=== PATIENT | male | born 1965 | race Caucasian/White ===

== ENCOUNTER → 2016-04-22 | Outpatient (CLI) | payer OTHER ==
[~2016-04-22] MED LIST: /ACYC20CA OR; /ADVA50050 IN; /ESOM40CA PO; ACYC1CAP8 PO; ADV250INH INH; ALBU17IN INH; BREO1INH3 IN; BUSP15TA47 PO; DEPA250T2 PO; DEPA500T OR; DEPA500T2 OR; DEPA500T2 PO; EFFE150C OR; EFFEXOR XR PO; FLEXERIL PO; FLUO20CA8 PO; FLUO20CA9 PO; HYDR25TA6 OR; HYDROCORTISONE0.5 % TOP; KETO2CR TOP; LAMI25TA OR; LAMI25TA PO; LAMICTAL PO; LISI-538 PO; LISI10TA4 OR; LISI20TA5 OR; LISI5TAB PO; LISIPOW; METRCRM EXT; PROZ10CA7 PO; REME15TA PO; SUCR1TA PO; TINA1CRE TOP; TRAZ50TA OR; TRAZ50TA4 PO; VALA500T PO; VENL100T OR; ZOVI400T OR; meloxicam; meloxicam PO
[2016-04-22 12:26] LABS: BASO # 0.1 K/mm3 (0.0-0.2); BASO % 2.2 % (0.0-1.0); EOS # 0.2 K/mm3 (0.0-0.50); EOS % 2.9 % (0.0-3.0); LARGE UNSTAINED CELL # 0.2 K/mm3 (0.0-0.4); LARGE UNSTAINED CELL % 2.5 % (0.0-4.0); LYMPH # 2.2 K/mm3 (1.5-4.5); LYMPH % 33.7 % (24.0-44.0); MEAN CORPUSCULAR HEMOGLOBIN 32.8 pg (27.0-33.0); MEAN CORPUSCULAR HGB CONC 34.3 g/dl (32.0-36.5); MEAN CORPUSCULAR VOLUME 95.6 fl (80.0-96.0); MONO # 0.3 K/mm3 (0.0-0.8); MONO % 5.7 % (0.0-5.0); NEUTROPHILS # 3.2 K/mm3 (1.8-7.7); PLATELET COUNT, AUTOMATED 180 k/mm3 (150-450); RED CELL DISTRIBUTION WIDTH 13.6 % (11.5-14.5)
[2016-04-22 12:54] LABS: ALBUMIN 4.2 GM/DL (3.2-5.2); ALKALINE PHOSPHATASE 82 U/L (45-117); ALT/SGPT 24 U/L (12-78); ANION GAP 7 MEQ/L (8-16); AST/SGOT 13 U/L (15-37); BILIRUBIN,TOTAL 0.5 MG/DL (0.2-1.0); BLOOD UREA NITROGEN 12 MG/DL (7-18); CALCIUM LEVEL 9.4 MG/DL (8.5-10.1); CARBON DIOXIDE LEVEL 29 MEQ/L (21-32); CHLORIDE LEVEL 107 MEQ/L (98-107); CREATININE FOR GFR 1.07 MG/DL (0.70-1.30); GLOMERULAR FILTRATION RATE > 60.0 (>60); GLUCOSE, FASTING 95 MG/DL (70-105); POTASSIUM SERUM 4.5 MEQ/L (3.5-5.1); SODIUM LEVEL 143 MEQ/L (136-145)
[2016-04-23 15:25] LABS: CHOLESTEROL LEVEL 201 MG/DL (<200); FREE T4 1.02 NG/DL (0.76-1.46); TRIGLYCERIDES LEVEL 113 MG/DL (<150)
== END ==
LOC: M LAB 11:21
PROVIDERS: ATTEND Nurse Practitioner Psychiatric/Mental Health
DX: R37 Sexual dysfunction, unspecified (principal)

== ENCOUNTER → 2016-12-18 | Outpatient (REF) | payer OTHER ==
[~2016-12-18] MED LIST changes: -ACYC1CAP8 PO; +ACYC200C8 PO; +FLUO20CA19 PO; -FLUO20CA9 PO; +TRAZ50TA11 PO; -TRAZ50TA4 PO; -VALA500T PO; +VALA500T2 PO
== END ==
LOC: M LAB REF 12:50
PROVIDERS: ATTEND Family Medicine Addiction Medicine
DX: N52.9 Male erectile dysfunction, unspecified (principal)

== ENCOUNTER → 2017-01-15 | Outpatient (CLI) | payer OTHER ==
--- NOTE | 2017-01-17 14:22 | EEG ---
DATE OF PROCEDURE: 01/15/2017 REFERRING PHYSICIAN: Eliud Brown DIAGNOSIS: Seizure. EEG NUMBER: [id number] HISTORY: The patient is a 51-year-old man with history of anxiety, depression, suicidal ideation who is currently taking Wellbutrin, lithium, trazodone, gabapentin, lisinopril, Valtrex. This EEG was done to rule out epileptic potential. TECHNICAL DESCRIPTION: This digital EEG was recorded by 21 scalp, ear and two EKG electrodes and was reviewed in bipolar and referential montages following reformatting in 10-20 international electrode placement system. INTERPRETATION: The patient was noted to be in awake and drowsy states during this EEG. Resting awake background rhythm consisted of well-formed posterior dominant rhythm with anterior/posterior gradient comprising of 9 Hertz alpha activity measuring 15 - 40 microvolts in amplitude which was symmetric and reactive to eye opening. Attenuation of posterior dominant was seen during transition into drowsiness. No sleep was achieved. Hyperventilation remained unremarkable. Photic stimulation remained unremarkable. EKG revealed normal sinus rhythm. No focal, lateralizing or epileptiform abnormalities were seen. No clinical or electrographic seizures were recorded. CONCLUSION: This EEG in awake and drowsy states is within normal limits.
== END ==
LOC: M SLEEP 08:06
PROVIDERS: ATTEND Nurse Practitioner Psychiatric/Mental Health
DX: G40.89 Other seizures (principal); F33.2 Major depressive disorder, recurrent severe without psychotic features

== ENCOUNTER → 2017-05-15 | Outpatient (REF) | payer OTHER ==
[2017-05-15 14:03] LABS: BASO # 0.1 10^3/uL (0.0-0.2); BASO % 0.8 % (0.0-1.0); EOS # 0.4 10^3/uL (0.0-0.50); EOS % 5.8 % (0.0-3.0); HEMATOCRIT 42.8 % (42.0-52.0); HEMOGLOBIN 14.8 g/dl (14.0-18.0); IMMATURE GRANULOCYTE % 0.5 % (0-3.0); LYMPH % 33.1 % (24.0-44.0); MEAN CORPUSCULAR HGB CONC 34.6 g/dl (32.0-36.5); MEAN CORPUSCULAR VOLUME 98.4 fl (80.0-96.0); MONO # 0.4 10^3/uL (0.0-0.8); MONO % 6.3 % (0.0-5.0); NEUTROPHILS # 3.2 10^3/uL (1.8-7.7); NEUTROPHILS % 53.5 % (36.0-66.0); PLATELET COUNT, AUTOMATED 219 10^3/uL (150-450); RED BLOOD COUNT 4.35 10^6/uL (4.30-6.10); RED CELL DISTRIBUTION WIDTH 12.5 % (11.5-14.5)
[2017-05-15 14:22] LABS: PROSTATIC SPECIFIC AG MONITOR 2.05 NG/ML (< 4.0)
[2017-05-15 14:31] LABS: TESTOSTERONE 418 NG/DL (241-827)
== END ==
LOC: M LAB REF 13:53
DX: E23.0 Hypopituitarism (principal); N52.8 Other male erectile dysfunction

== ENCOUNTER → 2017-06-20 | Outpatient (REF) | payer OTHER ==
[2017-06-20 17:29] LABS: BASO # 0.1 10^3/uL (0.0-0.2); BASO % 0.7 % (0.0-1.0); EOS # 0.3 10^3/uL (0.0-0.50); EOS % 3.9 % (0.0-3.0); HEMATOCRIT 42.5 % (42.0-52.0); HEMOGLOBIN 14.8 g/dl (14.0-18.0); IMMATURE GRANULOCYTE % 0.3 % (0-3.0); LYMPH # 2.5 10^3/uL (1.5-4.5); LYMPH % 33.2 % (24.0-44.0); MEAN CORPUSCULAR HEMOGLOBIN 33.9 pg (27.0-33.0); MEAN CORPUSCULAR HGB CONC 34.8 g/dl (32.0-36.5); MEAN CORPUSCULAR VOLUME 97.5 fl (80.0-96.0); MONO # 0.5 10^3/uL (0.0-0.8); MONO % 7.2 % (0.0-5.0); NEUTROPHILS # 4.1 10^3/uL (1.8-7.7); NEUTROPHILS % 54.7 % (36.0-66.0); PLATELET COUNT, AUTOMATED 202 10^3/uL (150-450); RED BLOOD COUNT 4.36 10^6/uL (4.30-6.10); RED CELL DISTRIBUTION WIDTH 12.8 % (11.5-14.5); WHITE BLOOD COUNT 7.4 10^3/uL (4.0-10.0)
[2017-06-20 18:01] LABS: ALBUMIN 4.3 GM/DL (3.2-5.2); ALBUMIN/GLOBULIN RATIO 1.34 (1.00-1.93); ALKALINE PHOSPHATASE 82 U/L (45-117); ALT/SGPT 25 U/L (12-78); ANION GAP 5 MEQ/L (8-16); AST/SGOT 18 U/L (7-37); BILIRUBIN,TOTAL 0.5 MG/DL (0.2-1.0); BLOOD UREA NITROGEN 12 MG/DL (7-18); CALCIUM LEVEL 9.1 MG/DL (8.5-10.1); CARBON DIOXIDE LEVEL 31 MEQ/L (21-32); CHLORIDE LEVEL 105 MEQ/L (98-107); GLOMERULAR FILTRATION RATE > 60.0 (>56); GLUCOSE, FASTING 84 MG/DL (70-100); POTASSIUM SERUM 4.4 MEQ/L (3.5-5.1); SODIUM LEVEL 141 MEQ/L (136-145); TOTAL PROTEIN 7.5 GM/DL (6.4-8.2)
== END ==
LOC: M LAB REF 16:50
DX: F34.1 Dysthymic disorder (principal)

== ENCOUNTER → 2017-09-16 | Outpatient (CLI) | payer OTHER | LOC: M EKG 09:59 | DX: M25.561 Pain in right knee (principal) ==

== ENCOUNTER 2017-11-05 08:51 | Outpatient (RCR) | payer OTHER | END 2017-12-05 | LOC: M PT 08:51 | DX: Z51.89 Encounter for other specified aftercare (principal); M79.671 Pain in right foot; M25.561 Pain in right knee | CPT/HCPCS: 97010 ==

== ENCOUNTER → 2017-11-14 | Outpatient (REF) | payer OTHER ==
[2017-11-14 13:24] LABS: BASO # 0.1 10^3/uL (0.0-0.2); BASO % 0.8 % (0.0-1.0); EOS # 0.2 10^3/uL (0.0-0.50); EOS % 2.5 % (0.0-3.0); HEMATOCRIT 41.1 % (42.0-52.0); HEMOGLOBIN 14.3 g/dl (13.5-17.5); IMMATURE GRANULOCYTE % 0.5 % (0-3.0); LYMPH # 1.9 10^3/uL (1.5-4.5); MEAN CORPUSCULAR HEMOGLOBIN 33.6 pg (27.0-33.0); MEAN CORPUSCULAR HGB CONC 34.8 g/dl (32.0-36.5); MEAN CORPUSCULAR VOLUME 96.7 fl (80.0-96.0); MONO # 0.5 10^3/uL (0.0-0.8); MONO % 8.4 % (0.0-5.0); NEUTROPHILS # 3.6 10^3/uL (1.8-7.7); NEUTROPHILS % 57.8 % (36.0-66.0); PLATELET COUNT, AUTOMATED 206 10^3/uL (150-450); RED BLOOD COUNT 4.25 10^6/uL (4.30-6.10); RED CELL DISTRIBUTION WIDTH 13.1 % (11.5-14.5); WHITE BLOOD COUNT 6.3 10^3/uL (4.0-10.0)
[2017-11-14 14:01] LABS: ALBUMIN 3.9 GM/DL (3.2-5.2); ALBUMIN/GLOBULIN RATIO 1.22 (1.00-1.93); ALKALINE PHOSPHATASE 75 U/L (45-117); ALT/SGPT 29 U/L (12-78); ANION GAP 7 MEQ/L (8-16); AST/SGOT 16 U/L (7-37); BILIRUBIN,TOTAL 0.3 MG/DL (0.2-1.0); BLOOD UREA NITROGEN 9 MG/DL (7-18); CALCIUM LEVEL 8.9 MG/DL (8.5-10.1); CARBON DIOXIDE LEVEL 25 MEQ/L (21-32); CHLORIDE LEVEL 108 MEQ/L (98-107); CREATININE FOR GFR 1.19 MG/DL (0.70-1.30); GLOMERULAR FILTRATION RATE > 60.0 (>56); GLUCOSE, FASTING 120 MG/DL (70-100); SODIUM LEVEL 140 MEQ/L (136-145); TOTAL PROTEIN 7.1 GM/DL (6.4-8.2)
== END ==
LOC: M LAB REF 13:05
DX: F34.1 Dysthymic disorder (principal)

== ENCOUNTER 2018-11-12 00:56 | Emergency (ER) | payer MEDICARE, MEDICAID ==
[~2018-11-12] VITALS: Ht 162.6 cm; Wt 95.5 kg
[~2018-11-12 00:56] MED LIST changes: -/ACYC20CA OR; -/ADVA50050 IN; -/ESOM40CA PO; +ACYC1CAP8 OR; +ADVA1AER2 IN; +METR0.00 EXT; -METRCRM EXT; +NEXI1CAP3 PO; +TRAZ-252 PO; -TRAZ50TA11 PO; -VALA500T2 PO; +VALA500T5 PO
[2018-11-12] MEDS ORDERED: SUCR1TAB56 (01:03)
[2018-11-12] MEDS ORDERED: GABA600T4 (01:03)
[2018-11-12] MEDS ORDERED: AMLO5TAB6 (01:03)
[2018-11-12] MEDS ORDERED: VALA1TAB2 (01:03)
[2018-11-12 01:25] LABS: HEMATOCRIT 42.1 % (42.0-52.0); HEMOGLOBIN 15.2 g/dl (13.5-17.5); MEAN CORPUSCULAR HEMOGLOBIN 34.2 pg (27.0-33.0); MEAN CORPUSCULAR HGB CONC 36.1 g/dl (32.0-36.5); MEAN CORPUSCULAR VOLUME 94.8 fl (80.0-96.0); PLATELET COUNT, AUTOMATED 196 10^3/uL (150-450); RED BLOOD COUNT 4.44 10^6/uL (4.30-6.10); WHITE BLOOD COUNT 11.2 10^3/uL (4.0-10.0)
[2018-11-12 01:35] LABS: APPEARANCE, URINE HAZY (CLEAR); BACTERIA, URINE AUTO NEGATIVE (NEGATIVE); BILIRUBIN, URINE AUTO NEGATIVE (NEGATIVE); BLOOD, URINE BLOOD 2+ (NEGATIVE); COLOR, URINE YELLOW (YELLOW); GLUCOSE, URINE (UA) AUTO NEGATIVE (NEGATIVE); KETONE, URINE AUTO TRACE mg/dL (NEGATIVE); LEUKOCYTE ESTERASE, URINE AUTO NEGATIVE (NEGATIVE); NITRITE, URINE AUTO NEGATIVE (NEGATIVE); PROTEIN, URINE AUTO NEGATIVE (NEGATIVE); RBC, URINE AUTO 8 /HPF (0-3); SPECIFIC GRAVITY URINE AUTO 1.015 (1.002-1.035); SQUAMOUS EPITHELIAL CELL UR AU 0 /HPF (0-6); UROBILINOGEN, URINE AUTO 0.2 mg/dL (0.0-2.0); WBC, URINE AUTO 1 /HPF (0-3)
[2018-11-12 01:49] LABS: ALBUMIN 4.2 GM/DL (3.2-5.2); ALT/SGPT 40 U/L (12-78); BILIRUBIN,TOTAL 0.4 MG/DL (0.2-1.0); BLOOD UREA NITROGEN 10 MG/DL (7-18); CALCIUM LEVEL 9.5 MG/DL (8.5-10.1); CARBON DIOXIDE LEVEL 27 MEQ/L (21-32); CHLORIDE LEVEL 107 MEQ/L (98-107); CREATININE FOR GFR 1.18 MG/DL (0.70-1.30); GLOMERULAR FILTRATION RATE > 60.0 (>56); GLUCOSE, FASTING 118 MG/DL (70-100); POTASSIUM SERUM 3.9 MEQ/L (3.5-5.1); SODIUM LEVEL 142 MEQ/L (136-145); TOTAL PROTEIN 7.4 GM/DL (6.4-8.2)
[2018-11-12 02:07] LABS: LIPASE 86 U/L (73-393)
[2018-11-12] MEDS ORDERED: NS 1,000 ML IV SCH (02:41)
[2018-11-12] MEDS ORDERED: ONDANSETRON 4MG/2ML VIAL (J2405) IV ONE (02:45)
[2018-11-12] MEDS ORDERED: KETOROLAC 30 MG/ML VIAL (J1885) IV ONE (02:45)
[2018-11-12] MEDS ORDERED: ISOVUE-370 76% 100ML VIAL (Q9967) As Ordered ONE (02:46)
[2018-11-12] MEDS ORDERED: MORPHINE 4 MG/ML 1ML VIAL/SYRINGE (J2270) IV ONE (03:45)
--- NOTE | 2018-11-12 03:49 | REPVR ---
EXAM: CT Abdomen and Pelvis With Contrast EXAM DATE/TIME: 11/12/2018 2:41 AM CLINICAL HISTORY: 53 years old, male; Abdominal pain; Flank; Right; Additional info: R flank pain rad to rlq TECHNIQUE: Imaging protocol: Axial computed tomography images of the abdomen and pelvis with intravenous contrast. Coronal and sagittal reformatted images were created and reviewed. Radiation optimization: All CT scans at this facility use at least one of these dose optimization techniques: automated exposure control; mA and/or kV adjustment per patient size (includes targeted exams where dose is matched to clinical indication); or iterative reconstruction. Contrast material: ISO;Contrast volume: 100 ml;Contrast route: AC; COMPARISON: No relevant prior studies available. FINDINGS: Liver: Normal. No mass. Gallbladder and bile ducts: The gallbladder is somewhat contracted with no stones. Pancreas: Normal. No ductal dilation. Spleen: Normal. No splenomegaly. Adrenals: Normal. No mass. Kidneys and ureters: Right perinephric fluid and stranding with minimal right hydronephrosis and hydroureter and periureteral edema which extends to the right UVJ. There is a punctate 1 mm distal right UVJ calculus. Stomach and bowel: Mild distention of the stomach with fluid and food. Appendix: A normal appendix is seen. Intraperitoneal space: Normal. No free air. No significant fluid collection. Vasculature: Normal. No abdominal aortic aneurysm. Lymph nodes: Normal. No enlarged lymph nodes. Bladder: Unremarkable as visualized. Reproductive: Unremarkable as visualized. Bones/joints: No acute fracture. No dislocation. Soft tissues: Unremarkable. IMPRESSION: 1. Punctate 1 mm distal right UVJ calculus with secondary obstructive uropathy of the right upper tract with probable pyelosinus backflow and perinephric fluid. 2. There is mild gastric distention with fluid and food material which may reflect recent ingestion. Gastric atony or relative outlet obstruction are not excluded. 3. Otherwise negative CT abdomen/pelvis. Electronically signed by: Oneil Bower On 11/12/2018 03:48:26 AM
[2018-11-12] MEDS ORDERED: FLOM0.4C39 PO (04:43)
[2018-11-12] MEDS ORDERED: KETO10TAB PO (04:43)
[2018-11-12 05:07] VITALS: BP 115/78
== END 2018-11-12 05:17 | disposition home or self-care (01) ==
LOC: M ED 00:56
DX: N13.0 Hydronephrosis with ureteropelvic junction obstruction (principal); I10 Essential (primary) hypertension; K21.9 Gastro-esophageal reflux disease without esophagitis; J45.909 Unspecified asthma, uncomplicated; K58.9 Irritable bowel syndrome, unspecified; F32.9 Major depressive disorder, single episode, unspecified; F41.9 Anxiety disorder, unspecified; F19.10 Other psychoactive substance abuse, uncomplicated; F17.200 Nicotine dependence, unspecified, uncomplicated; Z88.0 Allergy status to penicillin; Z91.018 Allergy to other foods; Z79.899 Other long term (current) drug therapy; Z79.51 Long term (current) use of inhaled steroids
CPT/HCPCS: 74177; 80053; 81001; 83690; 85027; 96361; 96374; 96375; 99284; J1885; J2270; J2405; Q9967

== ENCOUNTER → 2018-11-19 | Outpatient (REF) | payer MEDICARE, MEDICAID ==
[~2018-11-19] MED LIST changes: +AMLO5TAB6; +FLOM0.4C39 PO; +FLUO20CA20 PO; -FLUO20CA8 PO; +GABA600T4; +KETO10TAB PO; +SUCR1TAB56; +VALA1TAB64
[2018-11-19 13:33] LABS: APPEARANCE, URINE CLEAR (CLEAR); BACTERIA, URINE AUTO NEGATIVE (NEGATIVE); BILIRUBIN, URINE AUTO NEGATIVE (NEGATIVE); BLOOD, URINE BLOOD 1+ (NEGATIVE); COLOR, URINE YELLOW (YELLOW); GLUCOSE, URINE (UA) AUTO NEGATIVE (NEGATIVE); KETONE, URINE AUTO NEGATIVE (NEGATIVE); LEUKOCYTE ESTERASE, URINE AUTO NEGATIVE (NEGATIVE); MUCUS, URINE SMALL (NEGATIVE); NITRITE, URINE AUTO NEGATIVE (NEGATIVE); PROTEIN, URINE AUTO NEGATIVE (NEGATIVE); RBC, URINE AUTO 1 /HPF (0-3); SPECIFIC GRAVITY URINE AUTO 1.017 (1.002-1.035); SQUAMOUS EPITHELIAL CELL UR AU 0 /HPF (0-6); UROBILINOGEN, URINE AUTO 0.2 mg/dL (0.0-2.0); WBC, URINE AUTO 1 /HPF (0-3)
== END ==
LOC: M SMT 12:54
PROVIDERS: ATTEND Nurse Practitioner Women's Health
DX: N20.1 Calculus of ureter (principal)

== ENCOUNTER → 2019-03-15 | Outpatient (REF) | payer MEDICARE, MEDICAID ==
[2019-03-15 19:20] LABS: BASO # 0.1 10^3/uL (0.0-0.2); EOS # 0.3 10^3/uL (0.0-0.5); EOS % 3.8 % (0.0-3.0); HEMATOCRIT 43.8 % (42.0-52.0); HEMOGLOBIN 15.2 g/dl (13.5-17.5); LYMPH # 2.4 10^3/uL (1.5-5.0); LYMPH % 33.5 % (24.0-44.0); MEAN CORPUSCULAR HEMOGLOBIN 33.9 pg (27.0-33.0); MEAN CORPUSCULAR HGB CONC 34.7 g/dl (32.0-36.5); MEAN CORPUSCULAR VOLUME 97.8 fl (80.0-96.0); MONO # 0.6 10^3/uL (0.0-0.8); MONO % 8.1 % (0.0-5.0); NEUTROPHILS # 3.8 10^3/uL (1.5-8.5); PLATELET COUNT, AUTOMATED 186 10^3/uL (150-450); RED BLOOD COUNT 4.48 10^6/uL (4.30-6.10); WHITE BLOOD COUNT 7.2 10^3/uL (4.0-10.0)
[2019-03-15 19:34] LABS: ALT/SGPT 45 U/L (12-78); BILIRUBIN,TOTAL 0.5 MG/DL (0.2-1.0); BLOOD UREA NITROGEN 12 MG/DL (7-18); C REACTIVE PROTEIN QUANTITATIV 0.36 MG/DL (0.00-0.30); CALCIUM LEVEL 8.8 MG/DL (8.5-10.1); CARBON DIOXIDE LEVEL 28 MEQ/L (21-32); CHLORIDE LEVEL 108 MEQ/L (98-107); CHOLESTEROL LEVEL 183 MG/DL (<200); CHOLESTEROL RISK RATIO 4.255 (<5); COMPLEMENT C3 137 MG/DL (90-180); COMPLEMENT C4 27 MG/DL (10-40); GLOMERULAR FILTRATION RATE > 60.0 (>56); GLUCOSE, FASTING 108 MG/DL (70-100); HDL CHOLESTEROL 43 MG/DL (>40); LDL CHOLESTEROL 100 MG/DL (<100); NON-HDL-C 140 MG/DL; POTASSIUM SERUM 3.6 MEQ/L (3.5-5.1); RHEUMATOID FACTOR QUANT < 10.0 IU/ML (<15.0); SODIUM LEVEL 141 MEQ/L (136-145); THYROID STIMULATING HORMONE 0.465 uIU/ML (0.358-3.740); TOTAL PROTEIN 7.1 GM/DL (6.4-8.2); TRIGLYCERIDES LEVEL 201 MG/DL (<150); URIC ACID 7.4 MG/DL (3.5-7.2)
[2019-03-15 19:36] LABS: TOTAL 25(OH) VITAMIN D 14.1 NG/ML (30.0-100.0)
[2019-03-15 19:39] LABS: HEMOGLOBIN A1c 5.6 %
[2019-03-15 20:07] LABS: ERYTHROCYTE SEDIMENTATION RATE 5 mm/hr (0-20)
[2019-03-17 14:42] LABS: ANTINUCLEAR ANTIBODIES DIRECT Negative (Negative)
[2019-03-18 00:07] LABS: COMPLEMENT TOTAL (CH50) > 60 U/mL (42-999999)
== END ==
LOC: M LAB REF 18:35
PROVIDERS: ATTEND Nurse Practitioner Family
DX: M79.0 Rheumatism, unspecified (principal); M25.50 Pain in unspecified joint; F33.2 Major depressive disorder, recurrent severe without psychotic features; Z79.899 Other long term (current) drug therapy

== ENCOUNTER → 2019-09-30 | Outpatient (REF) | payer MEDICARE, MEDICAID ==
[~2019-09-30] MED LIST changes: -FLUO20CA19 PO; +FLUO20CA22 PO; +VALA1TAB5; -VALA1TAB64
[2019-09-30 14:35] LABS: BASO % 0.7 % (0.0-1.0); EOS # 0.2 10^3/uL (0.0-0.5); EOS % 2.9 % (0.0-3.0); HEMATOCRIT 44.9 % (42.0-52.0); HEMOGLOBIN 15.5 g/dl (13.5-17.5); LYMPH # 2.4 10^3/uL (1.5-5.0); LYMPH % 41.1 % (24.0-44.0); MEAN CORPUSCULAR HEMOGLOBIN 34.2 pg (27.0-33.0); MEAN CORPUSCULAR HGB CONC 34.5 g/dl (32.0-36.5); MEAN CORPUSCULAR VOLUME 99.1 fl (80.0-96.0); MONO # 0.5 10^3/uL (0.0-0.8); MONO % 8.4 % (0.0-5.0); NEUTROPHILS # 2.7 10^3/uL (1.5-8.5); NEUTROPHILS % 46.4 % (36.0-66.0); PLATELET COUNT, AUTOMATED 188 10^3/uL (150-450); RED BLOOD COUNT 4.53 10^6/uL (4.30-6.10); WHITE BLOOD COUNT 5.8 10^3/uL (4.0-10.0)
[2019-09-30 14:44] LABS: HEMOGLOBIN A1c 6.3 %
[2019-09-30 15:12] LABS: ALBUMIN 4.1 GM/DL (3.2-5.2); ALT/SGPT 36 U/L (12-78); BILIRUBIN,TOTAL 0.6 MG/DL (0.2-1.0); BLOOD UREA NITROGEN 16 MG/DL (7-18); CALCIUM LEVEL 8.9 MG/DL (8.5-10.1); CARBON DIOXIDE LEVEL 21 MEQ/L (21-32); CHLORIDE LEVEL 109 MEQ/L (98-107); CREATININE FOR GFR 1.26 MG/DL (0.70-1.30); GLOMERULAR FILTRATION RATE > 60.0 (>56); GLUCOSE, FASTING 124 MG/DL (70-100); POTASSIUM SERUM 3.6 MEQ/L (3.5-5.1); SODIUM LEVEL 142 MEQ/L (136-145); TOTAL 25(OH) VITAMIN D 17.2 NG/ML (30.0-100.0); TOTAL PROTEIN 7.3 GM/DL (6.4-8.2); URIC ACID 7.2 MG/DL (3.5-7.2)
== END ==
LOC: M LAB REF 12:41
PROVIDERS: ATTEND Physician Assistant
DX: R73.01 Impaired fasting glucose (principal); M10.9 Gout, unspecified; Z87.442 Personal history of urinary calculi; R10.32 Left lower quadrant pain; I10 Essential (primary) hypertension

== ENCOUNTER → 2019-10-28 | Outpatient (CLI) | payer MEDICARE, MEDICAID ==
[~2019-10-28] MED LIST changes: +AMLO1TAB24; -AMLO5TAB6
--- NOTE | 2019-10-28 10:36 | REP ---
Clinical: Left lower quadrant/flank pain. Technique: Real time adorno scale and color Doppler ultrasound examination using curved array transducer. Findings: Bilateral kidneys are normal in contour, size, echogenicity, and vascularity. No hydronephrosis, nephrolithiasis, cystic or renal mass lesion identified. Right kidney measures 11.3 x 5.7 x 5.7 cm (RI 0.63). Left kidney measures 10.0 x 5.5 x 5.7 cm (RI 0.57). Evaluation of the bladder demonstrates incomplete filling. No obvious mass lesion is appreciated. Prevoid bladder measures 26 ml. Complete emptying appreciated on postvoid images. Impression: 1. Normal appearance the bilateral kidneys. 2. Incomplete filling to the bladder which appears otherwise unremarkable. Electronically Signed by Chepe Rizzo MD 10/28/2019 10:28 A
== END ==
LOC: M WHC 09:46
PROVIDERS: ATTEND Physician Assistant
DX: M10.9 Gout, unspecified (principal); R10.32 Left lower quadrant pain; Z87.442 Personal history of urinary calculi

== ENCOUNTER 2020-01-04 10:19 | Outpatient (RCR) | payer MEDICARE, MEDICAID | END 2020-01-05 | disposition home or self-care (01) | LOC: M PT 10:19 | PROVIDERS: ATTEND Physician Assistant | DX: M25.569 Pain in unspecified knee (principal) ==

== ENCOUNTER → 2020-01-14 | Outpatient (REF) | payer MEDICARE, MEDICAID ==
[2020-01-14 16:53] LABS: BASO # 0.1 10^3/uL (0.0-0.2); BASO % 0.9 % (0.0-1.0); EOS # 0.2 10^3/uL (0.0-0.5); EOS % 2.9 % (0.0-3.0); HEMOGLOBIN 14.8 g/dl (13.5-17.5); LYMPH # 2.1 10^3/uL (1.5-5.0); LYMPH % 30.4 % (24.0-44.0); MEAN CORPUSCULAR HEMOGLOBIN 34.3 pg (27.0-33.0); MEAN CORPUSCULAR HGB CONC 34.4 g/dl (32.0-36.5); MEAN CORPUSCULAR VOLUME 99.5 fl (80.0-96.0); MONO # 0.6 10^3/uL (0.0-0.8); MONO % 8.3 % (0.0-5.0); NEUTROPHILS # 3.9 10^3/uL (1.5-8.5); NEUTROPHILS % 56.9 % (36.0-66.0); PLATELET COUNT, AUTOMATED 204 10^3/uL (150-450); RED BLOOD COUNT 4.32 10^6/uL (4.30-6.10); WHITE BLOOD COUNT 6.9 10^3/uL (4.0-10.0)
[2020-01-14 17:04] LABS: ALBUMIN 4.2 GM/DL (3.2-5.2); ALT/SGPT 26 U/L (12-78); BILIRUBIN,TOTAL 0.6 MG/DL (0.2-1.0); BLOOD UREA NITROGEN 15 MG/DL (7-18); CARBON DIOXIDE LEVEL 27 MEQ/L (21-32); CHLORIDE LEVEL 108 MEQ/L (98-107); CHOLESTEROL LEVEL 184 MG/DL (<200); CHOLESTEROL RISK RATIO 4.181 (<5); CREATININE FOR GFR 1.01 MG/DL (0.70-1.30); FREE T4 1.06 NG/DL (0.76-1.46); GLOMERULAR FILTRATION RATE > 60.0 (>56); GLUCOSE, FASTING 101 MG/DL (70-100); HDL CHOLESTEROL 44 MG/DL (>40); LDL CHOLESTEROL 102 MG/DL (<100); NON-HDL-C 140 MG/DL; SODIUM LEVEL 141 MEQ/L (136-145); TOTAL 25(OH) VITAMIN D 27.5 NG/ML (30.0-100.0); TOTAL PROTEIN 7.3 GM/DL (6.4-8.2); TRIGLYCERIDES LEVEL 191 MG/DL (<150)
[2020-01-14 17:12] LABS: HEMOGLOBIN A1c 5.8 %
== END ==
LOC: M LAB REF 16:28
PROVIDERS: ATTEND Physician Assistant
DX: E55.9 Vitamin D deficiency, unspecified (principal); R73.03 Prediabetes; M10.9 Gout, unspecified; F33.2 Major depressive disorder, recurrent severe without psychotic features; I10 Essential (primary) hypertension

== ENCOUNTER 2020-02-01 10:22 | Outpatient (RCR) | payer MEDICARE, MEDICAID | END 2020-02-05 | LOC: M PT 10:22 | PROVIDERS: ATTEND Physician Assistant | DX: M25.561 Pain in right knee (principal); M25.562 Pain in left knee ==

== ENCOUNTER → 2020-07-26 | Outpatient (REF) | payer MEDICARE, MEDICAID ==
[~2020-07-26] MED LIST changes: -LISI-538 PO; +LISI20TA33 PO
[2020-07-26 11:58] LABS: BASO # 0.1 10^3/uL (0.0-0.2); BASO % 0.7 % (0.0-1.0); EOS # 0.2 10^3/uL (0.0-0.5); EOS % 2.5 % (0.0-3.0); HEMATOCRIT 45.6 % (42.0-52.0); HEMOGLOBIN 15.6 g/dl (13.5-17.5); LYMPH # 2.4 10^3/uL (1.5-5.0); LYMPH % 35.9 % (24.0-44.0); MEAN CORPUSCULAR HEMOGLOBIN 33.1 pg (27.0-33.0); MEAN CORPUSCULAR HGB CONC 34.2 g/dl (32.0-36.5); MEAN CORPUSCULAR VOLUME 96.8 fl (80.0-96.0); MONO # 0.5 10^3/uL (0.0-0.8); MONO % 7.7 % (2.0-8.0); NEUTROPHILS # 3.5 10^3/uL (1.5-8.5); NEUTROPHILS % 52.5 % (36.0-66.0); PLATELET COUNT, AUTOMATED 243 10^3/uL (150-450); RED BLOOD COUNT 4.71 10^6/uL (4.30-6.10); WHITE BLOOD COUNT 6.7 10^3/uL (4.0-10.0)
[2020-07-26 12:27] LABS: ALBUMIN 4.2 GM/DL (3.2-5.2); ALT/SGPT 31 U/L (12-78); BILIRUBIN,TOTAL 0.5 MG/DL (0.2-1.0); BLOOD UREA NITROGEN 16 MG/DL (7-18); CALCIUM LEVEL 8.8 MG/DL (8.5-10.1); CARBON DIOXIDE LEVEL 23 MEQ/L (21-32); CHLORIDE LEVEL 108 MEQ/L (98-107); CHOLESTEROL LEVEL 199 MG/DL (<200); CHOLESTEROL RISK RATIO 4.234 (<5); CREATININE FOR GFR 1.06 MG/DL (0.70-1.30); GLOMERULAR FILTRATION RATE > 60.0 (>56); GLUCOSE, FASTING 101 MG/DL (70-100); HDL CHOLESTEROL 47 MG/DL (>40); LDL CHOLESTEROL 114 MG/DL (<100); NON-HDL-C 152 MG/DL; POTASSIUM SERUM 3.9 MEQ/L (3.5-5.1); SODIUM LEVEL 140 MEQ/L (136-145); TOTAL 25(OH) VITAMIN D 31.9 NG/ML (30.0-100.0); TOTAL PROTEIN 7.4 GM/DL (6.4-8.2); TRIGLYCERIDES LEVEL 192 MG/DL (<150)
== END ==
LOC: M LAB REF 11:14
PROVIDERS: ATTEND Physician Assistant
DX: I10 Essential (primary) hypertension (principal)

== ENCOUNTER → 2020-09-20 | Outpatient (CLI) | payer MEDICARE, MEDICAID ==
--- NOTE | 2020-09-20 09:44 | REPPI ---
INDICATION: M25.511 PAIN IN RIGHT SHOULDER. COMPARISON: None. TECHNIQUE: Three views of the left and right shoulder were performed. FINDINGS: The acromioclavicular and glenohumeral relationships are within normal limits. There is no acute fracture or destructive osseous lesion. IMPRESSION: No acute abnormality <Electronically signed by Sebastian Mascorro > 09/20/20 [id number]
== END ==
LOC: M PLAIMG 09:21
PROVIDERS: ATTEND Physician Assistant
DX: M25.511 Pain in right shoulder (principal); M25.551 Pain in right hip

== ENCOUNTER → 2020-11-09 | Outpatient (CLI) | payer MEDICARE, MEDICAID ==
--- NOTE | 2020-11-09 12:32 | REP ---
INDICATION: PAIN IN RIGHT HIP. COMPARISON: None. TECHNIQUE: Right hip two views Left hip two views FINDINGS: Right hip: Mineralization and joint space are unremarkable. There is a small calcification at the lateral margin of the femoroacetabular joint superiorly which could represent a ligamentous calcification or an avulsion. Correlation with clinical point tenderness is recommended. No evidence of fracture or dislocation otherwise. Left hip: Mineralization and joint spaces are unremarkable. There is no fracture or dislocation. There are no calcifications or foreign bodies. IMPRESSION: There is a calcification laterally at the superior margin of the right femoroacetabular articulation. Otherwise, negative bilateral hip series. <Electronically signed by Iker Yeager > 11/09/20 [id number]
== END ==
LOC: M WUC 11:04
PROVIDERS: ATTEND Physician Assistant
DX: M25.751 Osteophyte, right hip (principal)

== ENCOUNTER → 2022-07-01 | Outpatient (REF) | payer MEDICARE, MEDICAID ==
[~2022-07-01] MED LIST changes: +FLUO-96 PO; -FLUO20CA20 PO
[2022-07-01 17:04] LABS: BASO # 0.1 10^3/uL (0.0-0.2); EOS # 0.2 10^3/uL (0.0-0.5); EOS % 3.2 % (0.0-3.0); HEMATOCRIT 44.9 % (42.0-52.0); HEMOGLOBIN 15.4 g/dl (13.5-17.5); LYMPH % 33.4 % (24.0-44.0); MEAN CORPUSCULAR HEMOGLOBIN 33.6 pg (27.0-33.0); MEAN CORPUSCULAR HGB CONC 34.3 g/dl (32.0-36.5); MONO # 0.4 10^3/uL (0.0-0.8); MONO % 7.1 % (2.0-8.0); NEUTROPHILS # 3.3 10^3/uL (1.5-8.5); NEUTROPHILS % 54.5 % (36.0-66.0); PLATELET COUNT, AUTOMATED 193 10^3/uL (150-450); RED BLOOD COUNT 4.58 10^6/uL (4.30-6.10)
[2022-07-01 17:05] LABS: ALBUMIN 4.3 G/DL (3.2-5.2); ALKALINE PHOSPHATASE 76 U/L (46-116); ALT/SGPT 26 U/L (7.0-40); AST/SGOT < 8 U/L (<34); BILIRUBIN,TOTAL 0.7 MG/DL (0.3-1.2); BLOOD UREA NITROGEN 20 MG/DL (9-23); CARBON DIOXIDE LEVEL 26 MMOL/L (20-31); CHLORIDE LEVEL 108 MMOL/L (98-107); CHOLESTEROL LEVEL 189 MG/DL (<200); CHOLESTEROL RISK RATIO 3.67 (<5); CREATININE FOR GFR 0.98 MG/DL (0.70-1.30); GLOMERULAR FILTRATION RATE > 60.0 (>56); GLUCOSE, FASTING 101 MG/DL (60-100); HDL CHOLESTEROL 51.4 MG/DL (>40); LDL CHOLESTEROL 113.4 MG/DL (<100); NON-HDL-C 137.6 MG/DL; SODIUM LEVEL 140 MMOL/L (136-145); TOTAL 25(OH) VITAMIN D 48.8 NG/ML (20.0-100.0); TOTAL PROTEIN 6.9 G/DL (5.7-8.2); TRIGLYCERIDES LEVEL 121 MG/DL (<150)
[2022-07-01 17:39] LABS: HEMOGLOBIN A1c 5.6 % (4.0-6.0)
== END ==
LOC: M LAB REF 16:33
PROVIDERS: ATTEND Physician Assistant
DX: R73.03 Prediabetes (principal); E55.9 Vitamin D deficiency, unspecified; I10 Essential (primary) hypertension; E78.5 Hyperlipidemia, unspecified; N52.01 Erectile dysfunction due to arterial insufficiency; Z12.5 Encounter for screening for malignant neoplasm of prostate; Z80.42 Family history of malignant neoplasm of prostate
CPT/HCPCS: 80053; 80061; 82306; 83036; 84443; 85025; G0103

== ENCOUNTER → 2022-08-27 | Outpatient (REF) | payer MEDICARE, MEDICAID ==
[2022-08-27 17:19] LABS: BASO # 0.1 10^3/uL (0.0-0.2); EOS # 0.3 10^3/uL (0.0-0.5); EOS % 3.5 % (0.0-3.0); HEMATOCRIT 43.9 % (42.0-52.0); HEMOGLOBIN 15.7 g/dl (13.5-17.5); LYMPH # 2.4 10^3/uL (1.5-5.0); MEAN CORPUSCULAR HEMOGLOBIN 34.5 pg (27.0-33.0); MEAN CORPUSCULAR HGB CONC 35.8 g/dl (32.0-36.5); MEAN CORPUSCULAR VOLUME 96.5 fl (80.0-96.0); MONO # 0.6 10^3/uL (0.0-0.8); MONO % 7.9 % (2.0-8.0); NEUTROPHILS # 3.9 10^3/uL (1.5-8.5); NEUTROPHILS % 53.9 % (36.0-66.0); PLATELET COUNT, AUTOMATED 214 10^3/uL (150-450); RED BLOOD COUNT 4.55 10^6/uL (4.30-6.10); WHITE BLOOD COUNT 7.2 10^3/uL (4.0-10.0)
[2022-08-27 17:25] LABS: ALBUMIN 4.2 G/DL (3.2-5.2); BILIRUBIN,DIRECT 0.2 MG/DL (<0.4); BILIRUBIN,TOTAL 0.6 MG/DL (0.3-1.2); TOTAL PROTEIN 6.8 G/DL (5.7-8.2)
== END ==
LOC: M LAB REF 16:22
PROVIDERS: ATTEND Physician Assistant
DX: B35.3 Tinea pedis (principal); L29.9 Pruritus, unspecified; B35.1 Tinea unguium

== ENCOUNTER → 2022-10-15 | Outpatient (REF) | payer MEDICARE, MEDICAID ==
[2022-10-15 13:46] LABS: BASO # 0.1 10^3/uL (0.0-0.2); BASO % 1.1 % (0.0-1.0); EOS # 0.2 10^3/uL (0.0-0.5); EOS % 2.6 % (0.0-3.0); HEMATOCRIT 45.4 % (42.0-52.0); HEMOGLOBIN 15.5 g/dl (13.5-17.5); LYMPH # 1.8 10^3/uL (1.5-5.0); LYMPH % 27.7 % (24.0-44.0); MEAN CORPUSCULAR HEMOGLOBIN 33.8 pg (27.0-33.0); MEAN CORPUSCULAR HGB CONC 34.1 g/dl (32.0-36.5); MEAN CORPUSCULAR VOLUME 99.1 fl (80.0-96.0); MONO # 0.5 10^3/uL (0.0-0.8); MONO % 8.2 % (2.0-8.0); NEUTROPHILS # 3.9 10^3/uL (1.5-8.5); PLATELET COUNT, AUTOMATED 196 10^3/uL (150-450); RED BLOOD COUNT 4.58 10^6/uL (4.30-6.10); WHITE BLOOD COUNT 6.6 10^3/uL (4.0-10.0)
[2022-10-15 14:20] LABS: ALBUMIN 4.5 G/DL (3.2-5.2); ALKALINE PHOSPHATASE 81 U/L (46-116); ALT/SGPT 23 U/L (7.0-40); AST/SGOT 8 U/L (<34); BILIRUBIN,DIRECT < 0.1 MG/DL (<0.4); BILIRUBIN,TOTAL 0.5 MG/DL (0.3-1.2); TOTAL PROTEIN 7.2 G/DL (5.7-8.2)
== END ==
LOC: M LAB REF 12:38
PROVIDERS: ATTEND Physician Assistant
DX: L29.9 Pruritus, unspecified (principal)

== ENCOUNTER → 2023-02-20 | Outpatient (REF) | payer MEDICARE, MEDICAID ==
[2023-02-20 17:23] LABS: CHOLESTEROL RISK RATIO 3.88 (<5)
== END ==
LOC: M LAB REF 16:29
PROVIDERS: ATTEND Nurse Practitioner Family
DX: E78.5 Hyperlipidemia, unspecified (principal)

== ENCOUNTER → 2023-08-07 | Outpatient (REF) | payer MEDICARE, MEDICAID ==
[2023-08-07 15:10] LABS: ALBUMIN 4.4 G/DL (3.2-5.2); ALKALINE PHOSPHATASE 77 U/L (46-116); ALT/SGPT 21 U/L (7.0-40); AST/SGOT 16 U/L (<34); BILIRUBIN,TOTAL 0.9 MG/DL (0.3-1.2); BLOOD UREA NITROGEN 18 MG/DL (9-23); CALCIUM LEVEL 9.4 MG/DL (8.5-10.1); CARBON DIOXIDE LEVEL 26 MMOL/L (20-31); CHLORIDE LEVEL 106 MMOL/L (98-107); CHOLESTEROL LEVEL 218 MG/DL (<200); CHOLESTEROL RISK RATIO 4.27 (<5); CREATININE FOR GFR 1.06 MG/DL (0.70-1.30); GLOMERULAR FILTRATION RATE > 60.0 (>56); GLUCOSE, FASTING 93 MG/DL (60-100); LDL CHOLESTEROL 142.6 MG/DL (<100); POTASSIUM SERUM 4.7 MMOL/L (3.5-5.1); SODIUM LEVEL 139 MMOL/L (136-145); TOTAL PROTEIN 7.1 G/DL (5.7-8.2); TRIGLYCERIDES LEVEL 122 MG/DL (<150)
[2023-08-07 15:14] LABS: THYROID STIMULATING HORMONE 0.996 uIU/ML (0.55-4.78)
== END ==
LOC: M LAB REF 13:17
PROVIDERS: ATTEND Nurse Practitioner Family
DX: E78.5 Hyperlipidemia, unspecified (principal)

== ENCOUNTER → 2023-10-28 | Outpatient (CLI) | payer MEDICARE, MEDICAID ==
[~2023-10-28] MED LIST changes: +FLUO-365 PO; -FLUO20CA22 PO
== END ==
LOC: M RAD 11:15
PROVIDERS: ATTEND Physician Assistant
DX: R25.2 Cramp and spasm (principal)

== ENCOUNTER → 2023-11-24 | Outpatient (CLI) | payer MEDICARE, MEDICAID | LOC: M PLAIMG 08:49 | PROVIDERS: ATTEND Physician Assistant | DX: M51.26 Other intervertebral disc displacement, lumbar region (principal) ==

== ENCOUNTER 2023-12-03 09:49 | Outpatient (RCR) | payer MEDICARE, MEDICAID ==
[~2023-12-03 09:49] MED LIST changes: +GABA-1490; -GABA600T4
== END 2023-12-06 ==
LOC: M PT 09:49
PROVIDERS: ATTEND Physician Assistant
DX: M54.50 Low back pain, unspecified (principal)

== ENCOUNTER → 2023-12-30 | Outpatient (REF) | payer MEDICARE, MEDICAID ==
[2023-12-30 17:50] LABS: ALBUMIN 4.2 G/DL (3.2-5.2); ALKALINE PHOSPHATASE 77 U/L (46-116); ALT/SGPT 20 U/L (7.0-40); AST/SGOT 12 U/L (<34); BILIRUBIN,TOTAL 0.5 MG/DL (0.3-1.2); BLOOD UREA NITROGEN 20 MG/DL (9-23); CALCIUM LEVEL 9.5 MG/DL (8.5-10.1); CARBON DIOXIDE LEVEL 27 MMOL/L (20-31); CHLORIDE LEVEL 109 MMOL/L (98-107); CHOLESTEROL LEVEL 202 MG/DL (<200); CHOLESTEROL RISK RATIO 3.89 (<5); CREATININE FOR GFR 0.92 MG/DL (0.70-1.30); GLOMERULAR FILTRATION RATE > 60.0 (>56); GLUCOSE, FASTING 99 MG/DL (60-100); HDL CHOLESTEROL 51.9 MG/DL (>40); LDL CHOLESTEROL 120.7 MG/DL (<100); MAGNESIUM LEVEL 1.8 MG/DL (1.8-2.4); NON-HDL-C 150.1 MG/DL; POTASSIUM SERUM 4.4 MMOL/L (3.5-5.1); PSA SCREENING 2.62 NG/ML (< 4.00); SODIUM LEVEL 140 MMOL/L (136-145); TRIGLYCERIDES LEVEL 147 MG/DL (<150)
[2023-12-30 18:03] LABS: HEMOGLOBIN A1c 5.4 % (4.0-6.0)
== END ==
LOC: M LAB REF 16:58
PROVIDERS: ATTEND Physician Assistant
DX: E78.5 Hyperlipidemia, unspecified (principal); R73.03 Prediabetes; E23.0 Hypopituitarism; Z12.5 Encounter for screening for malignant neoplasm of prostate
CPT/HCPCS: 80053; 80061; 83036; 83735; G0103

== ENCOUNTER → 2024-08-06 | Outpatient (CLI) | payer MEDICARE, MEDICAID ==
[~2024-08-06] MED LIST changes: -ADV250INH INH; +ADVA1AER9 INH; -FLOM0.4C39 PO; +TAMS-18 PO
== END ==
LOC: M SOG 13:25
PROVIDERS: ATTEND Neuromusculoskeletal Medicine, Sports Medicine
DX: M25.562 Pain in left knee (principal); M25.561 Pain in right knee

== ENCOUNTER 2025-01-12 06:24 | Day surgery (SDC) | payer MEDICARE, MEDICAID ==
[~2025-01-12] VITALS: Ht 160 cm; Wt 85.2 kg
[~2025-01-12 06:24] MED LIST changes: +ACET-683 PO; +ACYC200C10 PO; -ACYC200C8 PO; +AMLO1TAB24 PO; +BENA25CA4 PO; +DEPA250T PO; -DEPA250T2 PO; +FLON1SPR; +GABA-1490 PO; +IBUP200C90 PO; +L-LY500T14 PO; +MELO15TA28 PO; +MONT10TA97 PO; +PROZ10CA11 PO; -PROZ10CA7 PO; +SUCR1TAB56 PO; +THERTAB52 PO; +TIZA2CAP PO; +VALT500T PO; +VENTAER INH; +VITA100093 PO; +[UNRECOGNIZED DRUG - CODE] PR; +[UNRECOGNIZED DRUG - CODE] XX
[2025-01-12] MEDS ORDERED: LIDOCAINE 2% 100 MG/5 ML SDV (FOR ANES.) As Ordered ONE (07:31)
[2025-01-12 07:37] VITALS: TEMP 99
[2025-01-12 08:12] VITALS: BP 140/92; O2SAT 96
== END 2025-01-12 08:18 | disposition home or self-care (01) ==
LOC: M OPP 06:24
PROVIDERS: ATTEND Surgery
DX: Z12.11 Encounter for screening for malignant neoplasm of colon (principal); K64.0 First degree hemorrhoids; G47.30 Sleep apnea, unspecified; Z88.8 Allergy status to other drugs, medicaments and biological substances; Z91.048 Other nonmedicinal substance allergy status; Z79.51 Long term (current) use of inhaled steroids; Z79.899 Other long term (current) drug therapy; J45.909 Unspecified asthma, uncomplicated